=== PATIENT | female | born 1990 | race Caucasian/White ===

== ENCOUNTER 2020-01-04 20:46 | Emergency (ER) | payer SELFPAY ==
[~2020-01-04] VITALS: Ht 172 cm; Wt 120.0 kg
--- NOTE | 2020-01-04 21:04 | ED General ---
General Stated Complaint: NAUSEA,DIARRHEA History of Present Illness Date Seen by Provider: Jan 04, 2020 Time Seen by Provider: 20:50 Initial Comments This patient is a 29-year-old female presents to the emergency department requesting a COVID test. Patient has no symptoms. Patient states that at [facility] and told her that she can get a COVID test before coming back to work. Patient states she does not have a family doctor. Advised patient that COVID testing usually related to symptoms related to COVID-19. And also the res ults are not immediately known. Patient states she does not have a local doctor we have advised we will provide her name of . she called an appointment with. Patient also states that she believes that she is a borderline diabetic and might need to be seen for that also. Patient did discuss options. About want to ask her primary care physician upon establishing care. Patient be discharged home. Patient has no emergent complaints today. Timing/Duration: Other Associated Systoms: No Denies Symptoms, No Chest Pain, No Cough, No Diaphoresis, No Fever/Chills, No Headaches, No Loss of Appetite, No Malaise, No Nausea/Vomiting, No Rash, No Seizure, No Shortness of Air, No Syncope, No Weakness, No Other Allergies and Home Medications Patient Home Medication List Home Medication List Reviewed: Yes Review of Systems Review of Systems Constitutional: No no symptoms reported, No see HPI, No chills, No diaphoresis, No dizziness, No fever, No malaise, No weakness, No weight gain, No weight loss, No other EENTM: No see HPI, No no symptoms reported, No ear discharge, No hearing loss, No ear pain, No blurred vision, No double vision, No eye pain, No tearing, No vision loss, No dental problems, No hoarseness, No mouth pain, No mouth swelling, No epistaxis, No nose congestion, No nose pain, No throat pain, No throat swelling, No other Respiratory: No no symptoms reported, No see HPI, No cough, No dyspnea on exertion, No hemoptysis, No orthopnea, No phlegm, No short of breath, No stridor, No wheezing, No other Cardiovascular: No no symptoms reported, No see HPI, No chest pain, No edema, No Hx of Intervention, No palpitations, No syncope, No vascular heart diseas, No other Gastrointestinal: No RUQ, No LUQ, No RLQ, No LLQ, No no symptoms reported, No see HPI, No abdominal pain, No constipation, No diarrhea, No dysphagia, No hematemesis, No heartburn, No jaundice, No loss of appetite, No melena, No nausea, No vomiting, No other Genitourinary: No no symptoms reported, No see HPI, No decreased output, No discharge, No dysuria, No frequency, No hematuria, No hesitancy, No incontinence, No nocturia, No pain, No other Musculoskeletal: No no symptoms reported, No see HPI, No back pain, No gout, No joint pain, No joint swelling, No muscle pain, No muscle stiffness, No muscle cramps, No muscle twitching, No muscle weakness, No neck pain, No other Skin: No no symptoms reported, No see HPI, No change in color, No change in hair/nails, No dryness, No hx of skin cancer, No lesions, No lumps, No pruritus, No rash, No other All Other Systems Reviewed Negative Unless Noted: Yes Past Rxztezu-Bomgsq-Frfsdx Hx Patient Social History Recent Foreign Travel: No Contact w/Someone Who Travel: No Physical Exam Vital Signs Capillary Refill : Height, Weight, BMI Height: '" Weight: lbs. oz. kg; BMI Method: General Appearance: No Apparent Distress, WD/WN Neck: Full Range of Motion, Normal Inspection, Non Tender, Supple Respiratory: Chest Non Tender, Lungs Clear, Normal Breath Sounds, No Accessory Muscle Use, No Respiratory Distress Cardiovascular: Regular Rate, Rhythm, No Edema, No Gallop, No JVD, No Murmur, Normal Peripheral Pulses Back: Normal Inspection, No CVA Tenderness, No Vertebral Tenderness Neurologic/Psychiatric: Alert, Oriented x3, No Motor/Sensory Deficits, Normal Mood/Affect Progress/Results/Core Measures Suspected Sepsis SIRS Temperature: Pulse: Respiratory Rate: Blood Pressure / Mean: Results/Orders Vital Signs/I&O Capillary Refill : Progress Note : Time: 21:02 Progress Note Patient offered full medical screening exam however patient does not have any acute emergent complaints today. Patient has no symptoms of COVID or any upper respiratory type symptoms at this time. Patient was instructed in directed to primary care to establish care patient states understanding patient is discharged Departure Impression Primary Impression: Encounter for medical screening examination Disposition: HOME, SELF-CARE Condition: Stable Departure-Patient Inst. Referrals: ABE CRANE MD Patient Instructions: Your Normal Heart Add. Discharge Instructions: Follow-up with Dr. Crane and establish primary care. For your primary care needs. VAISHNAVI JOHNSON MD Jan 04, 2020 21:04
[2020-01-04 21:07] VITALS: BP 190/104
== END 2020-01-04 21:11 | disposition home or self-care (01) ==
LOC: ER FS 20:49
DX: Z03.818 Encounter for observation for suspected exposure to other biological agents ruled out (principal)
CPT/HCPCS: 99282

== ENCOUNTER 2022-01-28 17:59 | Emergency (ER) | payer SELFPAY ==
--- NOTE | 2022-01-28 19:30 | ED General ---
General Chief Complaint: General Problems/Pain Stated Complaint: HEAT EXHAUSTION Nursing Triage Note: Patient has presented to ER with several complaints - she states that for the last few days she feels shakey, cough, congestion, has a sore throat, she has vomited, and she has been sweating. History of Present Illness Date Seen by Provider: Jan 28, 2022 Time Seen by Provider: 19:06 Initial Comments 31-year-old female is here with complaints of feeling tired and lethargic and fe els overheated, with c/o dysuria. Patient has been out of electricity and has been in her home smoking marijuana and doing meth, which was found out after deeper questioning. Denies chest pain, shortness of breath, abdominal pain, nausea and vomiting, diarrhea. No known sick contacts. Allergies and Home Medications Allergies Coded Allergies: No Known Drug Allergies (Unverified , 01/04/20) Patient Home Medication List Home Medication List Reviewed: Yes Review of Systems Review of Systems Constitutional: malaise EENTM: no symptoms reported Respiratory: no symptoms reported Cardiovascular: no symptoms reported Gastrointestinal: no symptoms reported Genitourinary: dysuria, hematuria Musculoskeletal: no symptoms reported Skin: no symptoms reported Psychiatric/Neurological: No Symptoms Reported Hematologic/Lymphatic: No Symptoms Reported Immunological/Allergic: no symptoms reported Past Wjxmzxg-Hzhfja-Ryoxsz Hx Patient Social History Tobacco Use?: No Substance use?: Yes Substance type: Marijuana Substance frequency: Once in a while Alcohol Use?: No Pt feels they are or have been: Unable to obtain Past Medical History Surgeries: No Respiratory: No Cardiac: No Neurological: No Genitourinary: No Gastrointestinal: No Musculoskeletal: No Endocrine: No HEENT: No Cancer: No Psychosocial: No Integumentary: No Blood Disorders: No Physical Exam Vital Signs Capillary Refill : Height, Weight, BMI Height: '" Weight: lbs. oz. kg; 40.00 BMI Method: General Appearance: Other (tired and feels lethargic) HEENT: PERRL/EOMI Neck: Full Range of Motion, Normal Inspection, Non Tender, Supple Respiratory: Chest Non Tender, Lungs Clear, Normal Breath Sounds, No Accessory Muscle Use Cardiovascular: Regular Rate, Rhythm Gastrointestinal: Normal Bowel Sounds, Non Tender, Soft Back: Normal Inspection, No CVA Tenderness, No Vertebral Tenderness Extremity: Normal Range of Motion Neurologic/Psychiatric: Alert, Oriented x3, No Motor/Sensory Deficits, Normal Mood/Affect Skin: Normal Color, Warm/Dry Focused Exam Lactate Level 01/28/22 20:07: Lactic Acid Level 1.56 Lactic Acid Level Laboratory Tests Test 01/28/22 20:07 Lactic Acid Level 1.56 MMOL/L (0.50-2.00) Progress/Results/Core Measures Suspected Sepsis SIRS Temperature: Pulse: Respiratory Rate: Laboratory Tests 01/28/22 20:07: White Blood Count 12.1H Blood Pressure / Mean: 01/28/22 20:07: Lactic Acid Level 1.56 Laboratory Tests 01/28/22 20:07: Creatinine 0.77, Platelet Count 270, Total Bilirubin 0.7 Results/Orders Lab Results Laboratory Tests Test 01/28/22 20:07 01/28/22 20:30 Range/Units White Blood Count 12.1 H 4.3-11.0 10^3/uL Red Blood Count 4.87 3.80-5.11 10^6/uL Hemoglobin 14.6 11.5-16.0 g/dL Hematocrit 43 35-52 % Mean Corpuscular Volume 88 80-99 fL Mean Corpuscular Hemoglobin 30 25-34 pg Mean Corpuscular Hemoglobin Concent 34 32-36 g/dL Red Cell Distribution Width 13.1 10.0-14.5 % Platelet Count 270 130-400 10^3/uL Mean Platelet Volume 10.7 9.0-12.2 fL Immature Granulocyte % (Auto) 0 % Neutrophils (%) (Auto) 58 42-75 % Lymphocytes (%) (Auto) 33 12-44 % Monocytes (%) (Auto) 4 0-12 % Eosinophils (%) (Auto) 3 0-10 % Basophils (%) (Auto) 1 0-10 % Neutrophils # (Auto) 7.1 1.8-7.8 10^3/uL Lymphocytes # (Auto) 4.0 1.0-4.0 10^3/uL Monocytes # (Auto) 0.5 0.0-1.0 10^3/uL Eosinophils # (Auto) 0.4 H 0.0-0.3 10^3/uL Basophils # (Auto) 0.1 0.0-0.1 10^3/uL Immature Granulocyte # (Auto) 0.0 0.0-0.1 10^3/uL Sodium Level 139 135-145 MMOL/L Potassium Level 3.4 L 3.6-5.0 MMOL/L Chloride Level 104 98-107 MMOL/L Carbon Dioxide Level 24 21-32 MMOL/L Anion Gap 11 5-14 MMOL/L Blood Urea Nitrogen 8 7-18 MG/DL Creatinine 0.77 0.60-1.30 MG/DL Estimat Glomerular Filtration Rate 105 BUN/Creatinine Ratio 10 Glucose Level 112 H 70-105 MG/DL Lactic Acid Level 1.56 0.50-2.00 MMOL/L Calcium Level 9.3 8.5-10.1 MG/DL Corrected Calcium 9.1 8.5-10.1 MG/DL Magnesium Level 1.8 1.6-2.4 MG/DL Total Bilirubin 0.7 0.1-1.0 MG/DL Aspartate Amino Transf (AST/SGOT) 28 5-34 U/L Alanine Aminotransferase (ALT/SGPT) 43 0-55 U/L Alkaline Phosphatase 52 40-136 U/L Total Protein 7.4 6.4-8.2 GM/DL Albumin 4.2 3.2-4.5 GM/DL Serum Alcohol < 10 <10 MG/DL Urine Color DARK YELLOW Urine Clarity CLOUDY Urine pH 6.0 5-9 Urine Specific [place] >=1.030 1.016-1.022 Urine Protein NEGATIVE NEGATIVE Urine Glucose (UA) NEGATIVE NEGATIVE Urine Ketones NEGATIVE NEGATIVE Urine Nitrite POSITIVE H NEGATIVE Urine Bilirubin 1+ H NEGATIVE Urine Urobilinogen 1.0 < = 1.0 MG/DL Urine Leukocyte Esterase NEGATIVE NEGATIVE Urine RBC (Auto) 2+ H NEGATIVE Urine RBC 2-5 H /HPF Urine WBC 5-10 H /HPF Urine Squamous Epithelial Cells 10-25 H /HPF Urine Crystals NONE /LPF Urine Bacteria LARGE H /HPF Urine Casts NONE /LPF Urine Mucus MODERATE H /LPF Urine Culture Indicated YES Serum Test, Qualitative NEGATIVE NEGATIVE Urine Opiates Screen NEGATIVE NEGATIVE Urine Oxycodone Screen NEGATIVE NEGATIVE Urine Methadone Screen NEGATIVE NEGATIVE Urine Propoxyphene Screen NEGATIVE NEGATIVE Urine Barbiturates Screen NEGATIVE NEGATIVE Ur Tricyclic Antidepressants Screen NEGATIVE NEGATIVE Urine Phencyclidine Screen NEGATIVE NEGATIVE Urine Amphetamines Screen POSITIVE H NEGATIVE Urine Methamphetamines Screen POSITIVE H NEGATIVE Urine Benzodiazepines Screen POSITIVE H NEGATIVE Urine Cocaine Screen NEGATIVE NEGATIVE Urine Cannabinoids Screen POSITIVE H NEGATIVE My Orders Orders - SHERRILL BEEBE MD Alcohol (01/28/22 19:50) Cbc With Automated Diff (01/28/22 19:50) Comprehensive Metabolic Panel (01/28/22 19:50) Drug Screen Stat (Urine) (01/28/22 19:50) Hcg,Qualitative Serum (01/28/22 19:50) Lactic Acid Analyzer (01/28/22 19:50) Magnesium (01/28/22 19:50) Ua Culture If Indicated (01/28/22 19:50) Ed Iv/Invasive Line Start (01/28/22 19:50) Ns Iv 1000 Ml (Sodium Chloride 0.9%) (01/28/22 20:00) Urine Culture (01/28/22 20:30) Nitrofurantoin Capsule,Macro (Macrobid C (01/28/22 21:15) Vital Signs/I&O Capillary Refill : Progress Note : Progress Note 1. DEHYDRATION: ACUTE CYSTITIS WITH HEMATURIA & METHAMPHETAMINE ABUSE / MARIJUANA ABUSE: - UA is positive for nitrates, RBC, WBC, bacteria -Drug screen is positive for methamphetamine and marijuana - Labs otherwise unremarkable -Patient does not have electricity at home and has been sitting in the heat doing meth and smoking marijuana and not drinking of water. Patient will be calling her niece to go stay with her tonight so that she has electricity. -Advised to stop doing drugs and to keep hydrated - Nitrofurantoin 100mg bid for 7 days : prescription -Follow-up with PCP within the next 3 to 5 days -The patient was seen in the ED, and treated appropriately to presentation at a specific point in time. Patient is informed that there is a possibility that disease and illness can evolve and change in acuity rapidly or slowly after patient is discharged from the ER. Precautionary advice given to the patient for immediate return to ER if symptoms worsen or do not resolve, and to seek emergency care sooner rather than later. Pt also advised on the importance of PCP follow up and compliance with management and follow up plan with PCP and/or specialist, as this is part of the management plan. Pt verbally expressed understanding. Departure Impression Primary Impression: Dehydration Additional Impressions: Acute cystitis with hematuria Methamphetamine abuse Marijuana abuse Disposition: HOME, SELF-CARE Condition: Improved Departure-Patient Inst. Referrals: NO,LOCAL PHYSICIAN (PCP/Family) Primary Care Physician Patient Instructions: Urinary Tract Infection, Adult (DC) Add. Discharge Instructions: -Patient does not have electricity at home and has been sitting in the heat doing meth and smoking marijuana and not drinking of water. Patient will be calling her niece to go stay with her tonight so that she has electricity. -Advised to stop doing drugs and to keep hydrated - Nitrofurantoin 100mg bid for 7 days : prescription -Follow-up with PCP within the next 3 to 5 days All discharge instructions reviewed with patient and/or family. Voiced understanding. Scripts Nitrofurantoin Macrocrystal (Nitrofurantoin) 100 Mg Capsule 100 MG PO BID for 7 Days, #14 CAP Prov: SHERRILL BEEBE MD 01/28/22 SHERRILL BEEBE MD Jan 28, 2022 19:30
[2022-01-28] MEDS ORDERED: NS IV 1000 ML 1,000 ML IV SCH (20:00)
[2022-01-28 20:37] LABS: CLARITY,URINE CLOUDY; GLUCOSE, URINE (UA) NEGATIVE (NEGATIVE); KETONES,URINE NEGATIVE (NEGATIVE); LEUKOCYTE ESTERASE ,URINE NEGATIVE (NEGATIVE); NITRITE,URINE POSITIVE (NEGATIVE); PROTEIN,URINE NEGATIVE (NEGATIVE)
[2022-01-28 20:39] LABS: BASOPHILS # (AUTO) 0.1 10^3/uL (0.0-0.1); BASOPHILS % (AUTO) 1 % (0-10); EOSINOPHILS # (AUTO) 0.4 10^3/uL (0.0-0.3); EOSINOPHILS % (AUTO) 3 % (0-10); HEMATOCRIT 43 % (35-52); HEMOGLOBIN 14.6 g/dL (11.5-16.0); LYMPHOCYTES % (AUTO) 33 % (12-44); MEAN CORPUSCULAR HEMOGLOBIN 30 pg (25-34); MEAN CORPUSCULAR HGB CONC 34 g/dL (32-36); MEAN CORPUSCULAR VOLUME 88 fL (80-99); MEAN PLATELET VOLUME 10.7 fL (9.0-12.2); MONOCYTES # (AUTO) 0.5 10^3/uL (0.0-1.0); MONOCYTES % (AUTO) 4 % (0-12); NEUTROPHILS # (AUTO) 7.1 10^3/uL (1.8-7.8); NEUTROPHILS % (AUTO) 58 % (42-75); PLATELET COUNT 270 10^3/uL (130-400); WHITE BLOOD COUNT 12.1 10^3/uL (4.3-11.0)
[2022-01-28 21:00] LABS: BACTERIA,URINE LARGE /HPF; BILIRUBIN,URINE 1+ (NEGATIVE); COLOR,URINE DARK YELLOW
[2022-01-28 21:01] LABS: AMPHETAMINE SCREEN, URINE POSITIVE (NEGATIVE); BARBITURATE SCREEN URINE NEGATIVE (NEGATIVE); BENZODIAZEPINES SCREEN URINE POSITIVE (NEGATIVE); CANNABINOID SCREEN, URINE POSITIVE (NEGATIVE); COCAINE SCREEN URINE NEGATIVE (NEGATIVE); METHADONE STAT NEGATIVE (NEGATIVE); OPIATE SCREEN URINE NEGATIVE (NEGATIVE); OXYCODONE STAT NEGATIVE (NEGATIVE); PROPOXYPHENE STAT NEGATIVE (NEGATIVE); TRICYCLIC ANTIDEPRESSANTS SCRE NEGATIVE (NEGATIVE)
[2022-01-28 21:03] LABS: CARBON DIOXIDE 24 MMOL/L (21-32); CHLORIDE 104 MMOL/L (98-107); POTASSIUM 3.4 MMOL/L (3.6-5.0); SODIUM 139 MMOL/L (135-145)
[2022-01-28 21:04] LABS: ALANINE AMINOTRANSFERASE 43 U/L (0-55); ALBUMIN 4.2 GM/DL (3.2-4.5); ALKALINE PHOSPHATASE 52 U/L (40-136); BILIRUBIN,TOTAL 0.7 MG/DL (0.1-1.0); BUN/CREATININE RATIO 10; CALCIUM 9.3 MG/DL (8.5-10.1); CREATININE SERUM 0.77 MG/DL (0.60-1.30); GFR ESTIMATED 105; GLUCOSE 112 MG/DL (70-105); MAGNESIUM 1.8 MG/DL (1.6-2.4); TOTAL PROTEIN 7.4 GM/DL (6.4-8.2)
[2022-01-28] MEDS ORDERED: NITROFURANTOIN 100 MG (MACROBID) CAPSULE PO ONE (21:15)
[2022-01-28] MEDS ORDERED: NITR100C PO (21:18)
[2022-01-28 21:21] VITALS: BP 130/95
== END 2022-01-28 21:24 | disposition home or self-care (01) ==
LOC: EDUNIT# 17:59 → ER FS 18:00
DX: N30.01 Acute cystitis with hematuria (principal); E86.0 Dehydration; F12.10 Cannabis abuse, uncomplicated; F15.10 Other stimulant abuse, uncomplicated
CPT/HCPCS: 36415; 80053; 80306; 81000; 83605; 83735; 84703; 85025; 87088; 99284; G0480; 80320; 87077

== ENCOUNTER 2022-03-07 16:35 | Emergency (ER) | payer SELFPAY ==
[~2022-03-07] VITALS: Ht 172.7 cm; Wt 36.8 kg
[~2022-03-07 16:35] MED LIST: NITR100C PO
[2022-03-07 16:51] VITALS: BP 160/100
--- NOTE | 2022-03-07 16:51 | ED Upper Extremity ---
General Chief Complaint: Upper Extremity Stated Complaint: FALL, L ARM PAIN History of Present Illness Date Seen by Provider: Mar 07, 2022 Time Seen by Provider: 16:50 Initial Comments 31-year-old female presents with left shoulder, elbow and wrist pain. Patient reports that 2 days ago she tripped on a dog toy fell and hit concrete step. Patient has a sling on this left over from when her "niece broke her arm a couple years ago" patient has painful range of motion in all 3 joints. She does have full range of motion. Patient has a elbow wrap on her left elbow. Patient denies any other injury from when she fell. Allergies and Home Medications Allergies Coded Allergies: No Known Drug Allergies (Unverified , 01/04/20) Patient Home Medication List Home Medication List Reviewed: Yes Nitrofurantoin Macrocrystal (Nitrofurantoin) 100 Mg Capsule, 100 MG PO BID Prescribed by: SHERRILL BEEBE MD on 01/28/222117 Review of Systems Constitutional: no symptoms reported EENTM: no symptoms reported Respiratory: no symptoms reported Cardiovascular: no symptoms reported Genitourinary: no symptoms reported Musculoskeletal: see HPI Skin: no symptoms reported Psychiatric/Neurological: No Symptoms Reported Past Jylxbtp-Jqfqoh-Fkuerb Hx Past Medical History Surgeries: No Respiratory: No Cardiac: No Neurological: No Genitourinary: No Gastrointestinal: No Musculoskeletal: No Endocrine: No HEENT: No Cancer: No Psychosocial: No Integumentary: No Blood Disorders: No Physical Exam Vital Signs Capillary Refill : Height, Weight, BMI Height: '" Weight: lbs. oz. kg; 40.00 BMI Method: General Appearance: WD/WN, no apparent distress, obese HEENT: PERRL/EOMI Cardiovascular: normal peripheral pulses, regular rate, rhythm Respiratory: lungs clear, normal breath sounds Gastrointestinal: non tender, soft Shoulder: No deformity; pain, soft tissue tenderness Elbow/Forearm: Left, deformity, soft tissue tenderness Wrist: Yes normal ROM; No deformity; Yes soft tissue tenderness Hand: normal inspection Neurologic/Psychiatric: alert, normal mood/affect, oriented x 3 Skin: normal color, warm/dry Progress/Results/Core Measures Results/Orders My Orders Orders - STEPHANIE LUDWIG DO Elbow 3 View Left (03/07/22 17:00) Shoulder 2 View Left (03/07/22 17:00) Wrist 3 View Left (03/07/22 17:00) Ortho Glass (03/07/22 17:37) Progress Progress Note : Progress Note Patient with fracture of the articular surface of the capitellum on the left el bow. Discussed with Dr. Hanson. We will place in a splint and sling. Have patient follow-up with Jeffrey Taylor for further outpatient recommendations Diagnostic Imaging Diagonstic Imaging: Xray Plain Films/CT/US/NM/MRI: elbow Comments Date of Exam:03/07/22 ELBOW 3 VIEW LEFT HISTORY: Fall, left elbow pain. TECHNIQUE: Three views of the left elbow. COMPARISON: None. FINDINGS: There is an anteriorly displaced and superiorly angulated fracture of the articular surface of the capitellum of the distal left humerus. There is a moderate left elbow joint effusion. The radial head is in expected position relative to the humerus otherwise. No other fractures are seen. There is surrounding soft tissue swelling. IMPRESSION: 1. Displaced fracture of the left humerus capitellum with a left elbow joint effusion. Reviewed: Reviewed by Me, Reviewed/Discussed Diagonstic Imaging: Xray Comments Date of Exam:03/07/22 SHOULDER 2 VIEW LEFT INDICATION: Fall last night with left arm pain TECHNIQUE: 2 views of the left shoulder CORRELATION STUDY: None FINDINGS: The glenohumeral and acromioclavicular alignment are maintained and unremarkable. There is no evidence for acute fracture or dislocation. The visualized soft tissues are unremarkable. IMPRESSION: 1. Negative for acute bony abnormality of the left shoulder. Reviewed: Reviewed by Me, Reviewed/Discussed Diagonstic Imaging: Xray Comments Date of Exam:03/07/22 WRIST 3 VIEW LEFT INDICATION: Fall last night, pain TECHNIQUE: 3 views of the left wrist CORRELATION STUDY: None FINDINGS: The osseous structures of the wrist have an unremarkable appearance. Alignment is anatomic. There is no acute bony abnormality. The visualized soft tissues appearing unremarkable. IMPRESSION: 1. Negative examination of the left wrist. Reviewed: Reviewed by Me, Reviewed/Discussed Departure Impression Primary Impression: Closed fracture of capitellum of left humerus Qualified Codes: S42.452A - Displaced fracture of lateral condyle of left humerus, initial encounter for closed fracture Disposition: 01 HOME, SELF-CARE Condition: Stable Departure-Patient Inst. Referrals: BELLE TAYLOR NO,LOCAL PHYSICIAN (PCP) Primary Care Physician Patient Instructions: Elbow Fracture, Adult ED, Splint Care ED Add. Discharge Instructions: Please call Jeffrey Taylor's office first thing in the morning to arrange for an outpatient follow-up Keep left arm elevated when not ambulating All discharge instructions reviewed with patient and/or family. Voiced understanding. Scripts Hydrocodone/Acetaminophen (Hydrocodone-Acetamin 5-325 mg) 5 Mg-325 Mg Tablet 1 TAB PO Q8H PRN for PAIN-MODERATE (5-7), #10 TAB Prov: STEPHANIE LUDWIG DO 03/07/22 STEPHANIE LUDWIG DO Mar 07, 2022 16:51
--- NOTE | 2022-03-07 17:27 | Diagnostic Imaging Report ---
INDICATION: Fall last night with left arm pain TECHNIQUE: 2 views of the left shoulder CORRELATION STUDY: None FINDINGS: The glenohumeral and acromioclavicular alignment are maintained and unremarkable. There is no evidence for acute fracture or dislocation. The visualized soft tissues are unremarkable. IMPRESSION: 1. Negative for acute bony abnormality of the left shoulder. Dictated by: Dictated on workstation # [id number]
--- NOTE | 2022-03-07 17:28 | Diagnostic Imaging Report ---
INDICATION: Fall last night, pain TECHNIQUE: 3 views of the left wrist CORRELATION STUDY: None FINDINGS: The osseous structures of the wrist have an unremarkable appearance. Alignment is anatomic. There is no acute bony abnormality. The visualized soft tissues appearing unremarkable. IMPRESSION: 1. Negative examination of the left wrist. Dictated by: Dictated on workstation # [id number]
--- NOTE | 2022-03-07 17:30 | Diagnostic Imaging Report ---
HISTORY: Fall, left elbow pain. TECHNIQUE: Three views of the left elbow. COMPARISON: None. FINDINGS: There is an anteriorly displaced and superiorly angulated fracture of the articular surface of the capitellum of the distal left humerus. There is a moderate left elbow joint effusion. The radial head is in expected position relative to the humerus otherwise. No other fractures are seen. There is surrounding soft tissue swelling. IMPRESSION: 1. Displaced fracture of the left humerus capitellum with a left elbow joint effusion. Dictated by: Dictated on workstation # [id number]
[2022-03-07] MEDS ORDERED: ACHD5005 PO (18:21)
== END 2022-03-07 18:25 | disposition home or self-care (01) ==
LOC: EDUNIT# 16:35 → ER FS 16:36
DX: S42.452A Displaced fracture of lateral condyle of left humerus, initial encounter for closed fracture (principal); W01.198A Fall on same level from slipping, tripping and stumbling with subsequent striking against other object, initial encounter
CPT/HCPCS: 29105; 73030; 73080; 73110

== ENCOUNTER 2023-01-29 14:55 | Emergency (ER) | payer OTHER ==
[~2023-01-29 14:55] MED LIST changes: +ACHD5005 PO
[2023-01-29] MEDS ORDERED: LORazepam 0.5 MG (ATIVAN) TABLET PO STA (15:16)
--- NOTE | 2023-01-29 15:21 | ED General ---
General Chief Complaint: General Problems/Pain Source of Information: Patient, EMS, Old Records Exam Limitations: Other (appears to be under the influence of something) History of Present Illness Date Seen by Provider: Jan 29, 2023 Time Seen by Provider: 14:55 Initial Comments 32-year-old female presenting by EMS from [facility]. Patient stat es that she was at [facility] to be tested for parasites. When they tried to draw blood she felt like the parasites in her arm were twisting with the blood draw. She started having a panic attack and was screaming and reportedly going in and out of consciousness. On arrival to the ED she appears to be under the influence of some substance. She admits to using marijuana but initially denies methamphetamines. From review of her prior ED visits in her EMR she does have a history of methamphetamine and marijuana abuse. When nursing staff try to get blood and an IV here in the emergency department she was screaming at the top of her lungs that the parasite was twisting in her arm and she felt things were worse with the nurse trying to draw blood and start the IV. She was hyperventilating and breathing hard. Her heart was racing with her agitation and hyperventilating. She also used her albuterol inhaler on arrival to the ED. Associated Systoms: No Chest Pain, No Cough, No Diaphoresis, No Fever/Chills; Headaches; No Nausea/Vomiting; Shortness of Air; No Syncope Allergies and Home Medications Allergies Coded Allergies: No Known Drug Allergies (Unverified , 01/04/20) Patient Home Medication List Home Medication List Reviewed: Yes Nitrofurantoin Monohyd/M-Cryst (Macrobid 100 mg Capsule) 100 Mg Capsule, 1 TAB PO BID Prescribed by: TOMY COFFEY on 01/29/23 165 Discontinued Medications Hydrocodone/Acetaminophen (Hydrocodone-Acetamin 5-325 mg) 5 Mg-325 Mg Tablet, 1 TAB PO Q8H PRN for PAIN-MODERATE (5-7) Prescribed by: STEPHANIE LUDWIG on 03/07/22 182 Nitrofurantoin Macrocrystal (Nitrofurantoin) 100 Mg Capsule, 100 MG PO BID Prescribed by: SHERRILL BEEBE MD on 01/28/222117 Review of Systems Review of Systems Constitutional: No chills, No fever EENTM: no symptoms reported Respiratory: see HPI Cardiovascular: No chest pain Gastrointestinal: no symptoms reported Genitourinary: no symptoms reported Musculoskeletal: no symptoms reported Skin: no symptoms reported Psychiatric/Neurological: Anxiety, Emotional Problems Past Ryvwzbv-Wtuylj-Ibukku Hx Patient Social History Tobacco Use?: No Use of E-Cig and/or Vaping dev: No Substance use?: Yes Substance type: Methamphetamine, Marijuana Additional substance use comme: Hx of meth use. Denies use today Substance frequency: Couple times a week Alcohol Use?: No Pt feels they are or have been: No Immunizations Up To Date First/Initial COVID19 Vaccinat: Denies Past Medical History Surgery/Hospitalization HX: Bipolar; Asthma; Anxiety; HTN; Headaches Surgeries: No Respiratory: No Cardiac: No Neurological: No Genitourinary: No Gastrointestinal: No Musculoskeletal: No Endocrine: No HEENT: No Cancer: No Psychosocial: No Integumentary: No Blood Disorders: No Physical Exam Vital Signs Vital Signs - First Documented 01/29/23 14:55 Temp 36.7 Pulse 141 Resp 16 B/P (MAP) 121/85 (97) Pulse Ox 98 O2 Delivery Room Air Capillary Refill : Height, Weight, BMI Height: '" Weight: lbs. oz. kg; 12.00 BMI Method: General Appearance: Obese, Other (Poor personal hygiene and disheveled appearance. She has moderate amount of facial hair.) HEENT: PERRL/EOMI; No Moist Mucous Membranes (slightly dry mucous membranes and foaming saliva at the corners of her mouth) Neck: Full Range of Motion, Normal Inspection, Supple Respiratory: Chest Non Tender, Lungs Clear, Normal Breath Sounds, No Accessory Muscle Use, No Respiratory Distress Cardiovascular: Normal Peripheral Pulses, Tachycardia Gastrointestinal: Normal Bowel Sounds, No Pulsatile Mass, Non Tender, Soft Rectal: Deferred Extremity: Normal Capillary Refill, No Pedal Edema Neurologic/Psychiatric: Alert, Oriented x3; No Normal Mood/Affect (anxious and having panic attack with attempts to draw blood); first assistant manager II-XII Norm as Tested Skin: Warm/Dry Progress/Results/Core Measures Suspected Sepsis SIRS Temperature: Pulse: Respiratory Rate: Laboratory Tests 01/29/23 15:00: White Blood Count 14.2H Blood Pressure / Mean: Laboratory Tests 01/29/23 15:00: Creatinine 1.15, Platelet Count 331, Total Bilirubin 0.5 Results/Orders Lab Results Laboratory Tests Test 01/29/23 15:00 01/29/23 16:03 Range/Units White Blood Count 14.2 H 4.3-11.0 10^3/uL Red Blood Count 5.39 H 3.80-5.11 10^6/uL Hemoglobin 16.3 H 11.5-16.0 g/dL Hematocrit 48 35-52 % Mean Corpuscular Volume 88 80-99 fL Mean Corpuscular Hemoglobin 30 25-34 pg Mean Corpuscular Hemoglobin Concent 34 32-36 g/dL Red Cell Distribution Width 13.4 10.0-14.5 % Platelet Count 331 130-400 10^3/uL Mean Platelet Volume 10.5 9.0-12.2 fL Immature Granulocyte % (Auto) 0 % Neutrophils (%) (Auto) 49 42-75 % Lymphocytes (%) (Auto) 44 12-44 % Monocytes (%) (Auto) 5 0-12 % Eosinophils (%) (Auto) 2 0-10 % Basophils (%) (Auto) 1 0-10 % Neutrophils # (Auto) 7.0 1.8-7.8 10^3/uL Lymphocytes # (Auto) 6.2 H 1.0-4.0 10^3/uL Monocytes # (Auto) 0.7 0.0-1.0 10^3/uL Eosinophils # (Auto) 0.2 0.0-0.3 10^3/uL Basophils # (Auto) 0.1 0.0-0.1 10^3/uL Immature Granulocyte # (Auto) 0.0 0.0-0.1 10^3/uL Neutrophils % (Manual) 46 % Lymphocytes % (Manual) 45 % Monocytes % (Manual) 7 % Eosinophils % (Manual) 2 % Blood Morphology Comment NORMAL Sodium Level 144 135-145 MMOL/L Potassium Level 3.6 3.6-5.0 MMOL/L Chloride Level 107 98-107 MMOL/L Carbon Dioxide Level 17 L 21-32 MMOL/L Anion Gap 20 H 5-14 MMOL/L Blood Urea Nitrogen 13 7-18 MG/DL Creatinine 1.15 0.60-1.30 MG/DL Estimat Glomerular Filtration Rate 65 BUN/Creatinine Ratio 11 Glucose Level 131 H 70-105 MG/DL Calcium Level 10.3 H 8.5-10.1 MG/DL Corrected Calcium 8.5-10.1 MG/DL Total Bilirubin 0.5 0.1-1.0 MG/DL Aspartate Amino Transf (AST/SGOT) 26 5-34 U/L Alanine Aminotransferase (ALT/SGPT) 37 0-55 U/L Alkaline Phosphatase 68 40-136 U/L Total Protein 8.2 6.4-8.2 GM/DL Albumin 4.7 H 3.2-4.5 GM/DL Salicylates Level < 5.0 L 5.0-20.0 MG/DL Acetaminophen Level < 10 L 10-30 UG/ML Serum Alcohol < 10 <10 MG/DL Urine Color YELLOW Urine Clarity CLOUDY Urine pH 6.0 5-9 Urine Specific [place] >=1.030 1.016-1.022 Urine Protein TRACE H NEGATIVE Urine Glucose (UA) NEGATIVE NEGATIVE Urine Ketones NEGATIVE NEGATIVE Urine Nitrite POSITIVE H NEGATIVE Urine Bilirubin NEGATIVE NEGATIVE Urine Urobilinogen 2.0 < = 1.0 MG/DL Urine Leukocyte Esterase 2+ H NEGATIVE Urine RBC (Auto) 3+ H NEGATIVE Urine RBC 10-25 H /HPF Urine WBC 50-100 H /HPF Urine Squamous Epithelial Cells 10-25 H /HPF Urine Crystals PRESENT H /LPF Urine Uric Acid Crystals FEW H /LPF Urine Bacteria LARGE H /HPF Urine Casts PRESENT /LPF Urine Hyaline Casts 10-25 H /LPF Urine Mucus SMALL H /LPF Urine Culture Indicated YES Urine Opiates Screen NEGATIVE NEGATIVE Urine Oxycodone Screen NEGATIVE NEGATIVE Urine Methadone Screen NEGATIVE NEGATIVE Urine Propoxyphene Screen NEGATIVE NEGATIVE Urine Barbiturates Screen NEGATIVE NEGATIVE Ur Tricyclic Antidepressants Screen NEGATIVE NEGATIVE Urine Phencyclidine Screen NEGATIVE NEGATIVE Urine Amphetamines Screen POSITIVE H NEGATIVE Urine Methamphetamines Screen POSITIVE H NEGATIVE Urine Benzodiazepines Screen NEGATIVE NEGATIVE Urine Cocaine Screen NEGATIVE NEGATIVE Urine Cannabinoids Screen POSITIVE H NEGATIVE My Orders Orders - TOMY COFFEY MD Ua Culture If Indicated (01/29/23 15:16) Cbc With Automated Diff (01/29/23 15:16) Comprehensive Metabolic Panel (01/29/23 15:16) Alcohol (01/29/23 15:16) Drug Screen Stat (Urine) (01/29/23 15:16) Acetaminophen (01/29/23 15:16) Salicylate (01/29/23 15:16) Ekg Tracing (01/29/23 15:16) Ed Iv/Invasive Line Start (01/29/23 15:16) Monitor-Rhythm Ecg Trace Only (01/29/23 15:16) Lorazepam Tablet (Ativan Tablet) (01/29/23 15:16) Manual Differential (01/29/23 15:00) Urine Culture (01/29/23 16:03) Vital Signs/I&O 01/29/23 01/29/23 14:55 16:52 Temp 36.7 36.7 Pulse 141 112 Resp 16 16 B/P (MAP) 121/85 (97) 127/78 Pulse Ox 98 98 O2 Delivery Room Air Room Air Capillary Refill : Progress Note #1: Progress Note Potential diagnosis of substance abuse, psychosis, hallucinations, electrolyte imbalance, UTI. Patient was not cooperative with having IV established. Labs were obtained and sent for complete blood count, comprehensive metabolic profile, alcohol level, salicylate level, acetaminophen level. Ordered urinalysis and urine drug scre en. Obtain electrocardiogram with her tachycardia and place on cardiac school bus monitor. Since she will not allow an IV to be established will have her try drinking water to help with her hydration. Order Ativan 0.5 mg po to try and help with her anxiety and possible psychosis induced by methamphetamine abuse. Progress Note #2: Time: 16:08 Progress Note On my personal interpretation and review her labs showed mild elevation of her white blood cell count of 14.2 with a normal differential. This might be more stress related or dehydration and hemoconcentration to cause it. Her hemoglobin was okay at 16.3. Her comprehensive metabolic panel did not show any acute significant electrolyte abnormalities to account for her complaints. Her alcohol and acetaminophen levels were both less than 10 and aspirin less than 5. She has come down some and is she was providing a urine specimen and told the nurses that she had been smoking marijuana with her brother and he told her after they have been smoking pot all day that he had mixed meth in with his marijuana. 1628 urinalysis shows elevated specific gravity to go with dehydration as it is >1.030. Positive nitrites and leukocyte esterase along with bacteria and white blood cells. Last urine culture from january 2022 showed E. coli that was pansensitive to everything except Ampicillin resistance. Will start her on oral antibiotic with prescription for home. Order Macrobid 100 mg po BID x 5 days. Urine drug screen came back showing Amphetamines, Methamphetamines, and Marijuana. Encouraged patient to avoid using methamphetamines or marijuana. Drink more water and stay better hydrated. Finish course of antibiotics to treat for UTI. ECG Initial ECG Impression Date: Jan 29, 2023 Initial ECG Impression Time: 15:05 Initial ECG Rate: 143 Initial ECG Rhythm: S.Tach Initial ECG Comparisson: No Previous ECG Available Comment On my personal interpretation and review her electrocardiogram appears to show sinus tachycardia with a heart rate of 143 bpm. She had no ST elevation. QT interval 360 ms with a QTc interval 443 ms. There is no prior tracing available for comparison. Departure Impression Primary Impression: Substance-induced psychotic disorder with delusions Additional Impressions: Methamphetamine abuse Acute cystitis with hematuria Dehydration Disposition: HOME, SELF-CARE Condition: Stable Departure-Patient Inst. Decision time for Depature: 16:31 Referrals: NO,LOCAL PHYSICIAN (PCP) Primary Care Physician [facility] Patient Instructions: Substance Use Disorder ED, Urinary Tract Infection, Adult ED, Dehydration, Adult ED Add. Discharge Instructions: Avoid using marijuana and methamphetamines. Take the full course of antibiotics for UTI. Stay well hydrated and check back with clinic for continued concerns. All discharge instructions reviewed with patient and/or family. Voiced understanding. Scripts Nitrofurantoin Monohyd/M-Cryst (Macrobid 100 mg Capsule) 100 Mg Capsule 1 TAB PO BID for UTI for 5 Days, #10 CAP 0 Refills Prov: TOMY COFFEY MD 01/29/23 TOMY COFFEY MD Jan 29, 2023 15:20
[2023-01-29 15:22] LABS: BASOPHILS # (AUTO) 0.1 10^3/uL (0.0-0.1); BASOPHILS % (AUTO) 1 % (0-10); EOSINOPHILS # (AUTO) 0.2 10^3/uL (0.0-0.3); EOSINOPHILS % (AUTO) 2 % (0-10); HEMATOCRIT 48 % (35-52); HEMOGLOBIN 16.3 g/dL (11.5-16.0); LYMPHOCYTES # (AUTO) 6.2 10^3/uL (1.0-4.0); LYMPHOCYTES % (AUTO) 44 % (12-44); MEAN CORPUSCULAR HEMOGLOBIN 30 pg (25-34); MEAN CORPUSCULAR HGB CONC 34 g/dL (32-36); MEAN CORPUSCULAR VOLUME 88 fL (80-99); MEAN PLATELET VOLUME 10.5 fL (9.0-12.2); MONOCYTES # (AUTO) 0.7 10^3/uL (0.0-1.0); MONOCYTES % (AUTO) 5 % (0-12); NEUTROPHILS % (AUTO) 49 % (42-75); PLATELET COUNT 331 10^3/uL (130-400); WHITE BLOOD COUNT 14.2 10^3/uL (4.3-11.0)
[2023-01-29 15:34] LABS: EOSINOPHILS % (MANUAL) 2 %; LYMPHOCYTES % (MANUAL) 45 %; MONOCYTES % (MANUAL) 7 %; NEUTROPHILS % (MANUAL) 46 %; RBC MORPH NORMAL
[2023-01-29 15:42] LABS: ALANINE AMINOTRANSFERASE 37 U/L (0-55); ALBUMIN 4.7 GM/DL (3.2-4.5); ALKALINE PHOSPHATASE 68 U/L (40-136); BILIRUBIN,TOTAL 0.5 MG/DL (0.1-1.0); BUN/CREATININE RATIO 11; CALCIUM 10.3 MG/DL (8.5-10.1); CARBON DIOXIDE 17 MMOL/L (21-32); CHLORIDE 107 MMOL/L (98-107); CREATININE SERUM 1.15 MG/DL (0.60-1.30); GFR ESTIMATED 65; GLUCOSE 131 MG/DL (70-105); POTASSIUM 3.6 MMOL/L (3.6-5.0); SODIUM 144 MMOL/L (135-145); TOTAL PROTEIN 8.2 GM/DL (6.4-8.2)
[2023-01-29 15:43] LABS: ACETAMINOPHEN < 10 UG/ML (10-30); SALICYLATE < 5.0 MG/DL (5.0-20.0)
[2023-01-29 16:17] LABS: BILIRUBIN,URINE NEGATIVE (NEGATIVE); CLARITY,URINE CLOUDY; COLOR,URINE YELLOW; GLUCOSE, URINE (UA) NEGATIVE (NEGATIVE); KETONES,URINE NEGATIVE (NEGATIVE); LEUKOCYTE ESTERASE ,URINE 2+ (NEGATIVE); NITRITE,URINE POSITIVE (NEGATIVE); PROTEIN,URINE TRACE (NEGATIVE)
[2023-01-29 16:24] LABS: BACTERIA,URINE LARGE /HPF; URIC ACID CRYSTALS,URINE FEW /LPF; WBC,URINE 50-100 /HPF
[2023-01-29 16:28] LABS: AMPHETAMINE SCREEN, URINE POSITIVE (NEGATIVE); BARBITURATE SCREEN URINE NEGATIVE (NEGATIVE); BENZODIAZEPINES SCREEN URINE NEGATIVE (NEGATIVE); CANNABINOID SCREEN, URINE POSITIVE (NEGATIVE); COCAINE SCREEN URINE NEGATIVE (NEGATIVE); METHADONE STAT NEGATIVE (NEGATIVE); OPIATE SCREEN URINE NEGATIVE (NEGATIVE); OXYCODONE STAT NEGATIVE (NEGATIVE); PROPOXYPHENE STAT NEGATIVE (NEGATIVE); TRICYCLIC ANTIDEPRESSANTS SCRE NEGATIVE (NEGATIVE)
[2023-01-29] MEDS ORDERED: NITR-65 PO ×2 (16:32→16:52)
[2023-01-29 16:52] VITALS: BP 127/78
== END 2023-01-29 16:52 | disposition home or self-care (01) ==
LOC: EDUNIT# 14:55 → ER FS 14:57
DX: F15.150 Other stimulant abuse with stimulant-induced psychotic disorder with delusions (principal); F12.150 Cannabis abuse with psychotic disorder with delusions; N30.01 Acute cystitis with hematuria; R00.0 Tachycardia, unspecified; E66.9 Obesity, unspecified; Z68.1 Body mass index [BMI] 19.9 or less, adult; Z28.310 Unvaccinated for COVID-19
CPT/HCPCS: 36415; 80053; 80306; 80320; 80329; 81000; 85007; 85027; 87088; 93005; 93041

== ENCOUNTER 2023-02-23 23:31 | Emergency (ER) | payer SELFPAY ==
[~2023-02-23] VITALS: Ht 172.7 cm; Wt 100.0 kg
[~2023-02-23 23:31] MED LIST changes: +NITR-65 PO
[2023-02-23] MEDS ORDERED: LORazepam 0.5 MG TABLET PO STA (23:54)
[2023-02-24] MEDS ORDERED: NS IV 1000 ML 1,000 ML IV ONE
--- NOTE | 2023-02-24 00:01 | ED Psychosocial ---
General Stated Complaint: PSYCH Source: patient, EMS, old records Exam Limitations: other (appears under the influence of some substance(s)) History of Present Illness Date Seen by Provider: Feb 23, 2023 Time Seen by Provider: 23:32 Initial Comments 32-year-old female presenting by EMS due to complaints of erratic and psychotic behavior. She has been paranoid and states that she has parasitic snakes that are in her body. She was refusing IV stick with EMS as she states that when she gets stuck for blood that this takes get bigger and twist her arm. They started to attack her and that they are very contagious and stick to everything. She states that she does smoke marijuana. When she was seen previously on January 29 she was finally able to calm down after some Ativan but she did test positive for methamphetamines and marijuana. She later admitted that family member had mixed meth and with the marijuana that they were smoking. She states that she does not leave her house over the last 3 years. She had no specific request for treatment in the ED. She keeps repeating how she has parasitic snakes that get bigger in the dark and can only be seen in the dark. Associated Symptoms: anxiety, impaired concentration Allergies and Home Medications Allergies Coded Allergies: No Known Drug Allergies (Unverified , 01/04/20) Patient Home Medication List Home Medication List Reviewed: Yes Nitrofurantoin Monohyd/M-Cryst (Macrobid 100 mg Capsule) 100 Mg Capsule, 1 TAB PO BID Prescribed by: TOMY COFFEY on 01/29/23 2482 Review of Systems Constitutional: no symptoms reported EENTM: no symptoms reported Respiratory: no symptoms reported Cardiovascular: no symptoms reported Gastrointestinal: no symptoms reported Genitourinary: no symptoms reported Musculoskeletal: no symptoms reported Skin: see HPI Psychiatric/Neurological: Anxiety, Emotional Problems Past Nwngayf-Egixwo-Ecfxil Hx Patient Social History Substance use?: Yes Substance type: Methamphetamine, Marijuana Immunizations Up To Date First/Initial COVID19 Vaccinat: Denies Past Medical History Surgery/Hospitalization HX: Bipolar; Asthma; Anxiety; HTN; Headaches, Marijuana, Methamphetamine abuse Surgeries: No Respiratory: No Cardiac: No Neurological: No Genitourinary: No Gastrointestinal: No Musculoskeletal: No Endocrine: No HEENT: No Cancer: No Psychosocial: No Integumentary: No Blood Disorders: No Physical Exam Vital Signs - First Documented 02/23/23 23:32 Temp 36.7 Pulse 148 Resp 22 B/P (MAP) 129/86 (100) Pulse Ox 100 O2 Delivery Room Air Capillary Refill : Height, Weight, BMI Height: '" Weight: lbs. oz. kg; 12.00 BMI Method: General Appearance: obese, other (poor personal hygiene and disheveled appearance. She has grass and dirt on her from rolling around on the ground. She keeps wanting to have the lights off so that she can show us her parasitic snakes.) HEENT: PERRL/EOMI; No photophobia; other (slightly dry mucous membranes with foaming saliva at corners of her mouth. Moderate amount of facial hair) Respiratory: chest non-tender, lungs clear, normal breath sounds Cardiovascular: normal peripheral pulses, regular rate, rhythm Gastrointestinal: normal bowel sounds, non tender, soft, no pulsatile mass Extremities: normal range of motion, non-tender, normal capillary refill Neurologic/Psychiatric: alert, oriented x 3 Appearance/Memory: disheveled, impaired insight Behavior/Eye Contact: cooperative, avoids eye contact, increased rate of speech Thoughts/Hallucinations: delusions, paranoid, tactile hallucinations, visual hallucinations Skin: warm/dry BARS Assessment: 5-Mild Agitation/Calms Plan/Intervention Administer Lorazepam 1 mg po to try and help with her delusions and paranoia. Will also administer a dose of zyprexa to see if that helps with her delusions and paranoia. Progress/Results/Core Measures Results/Orders My Orders Orders - TOMY COFFEY MD Ua Culture If Indicated (02/23/23 23:54) Cbc With Automated Diff (02/23/23 23:54) Comprehensive Metabolic Panel (02/23/23 23:54) Alcohol (02/23/23 23:54) Drug Screen Stat (Urine) (02/23/23 23:54) Acetaminophen (02/23/23 23:54) Salicylate (02/23/23 23:54) Ed Iv/Invasive Line Start (02/23/23 23:54) Ns Iv 1000 Ml (Sodium Chloride 0.9%) (02/24/23 00:00) Lorazepam Tablet (Ativan Tablet) (02/23/23 23:54) Olanzapine Orally Dissolve Tab (Zyprexa (02/24/23 00:05) Vital Signs/I&O 02/23/23 23:32 Temp 36.7 Pulse 148 Resp 22 B/P (MAP) 129/86 (100) Pulse Ox 100 O2 Delivery Room Air Progress Progress Note #1: Progress Note Potential diagnosis of paranoid behavior due to substances, acute psychosis, drug-induced mood disorder, methamphetamine abuse. Ordered Ativan 1 mg p.o. x1 to try and help with her paranoia and hallucinations. Zyprexa 5 mg oral dissolvable tablet to help with paranoia and acute psychosis. Try to obtain urine to check urine drug screen as the last time she acted like this 3 weeks ago she was positive for methamphetamines and marijuana. Try to get an IV to give a liter of IV fluids and check basic labs and psych labs of complete blood count, comprehensive metabolic profile, alcohol, acetaminophen, salicylate, urinalysis, urine drug screen. Initially patient was refusing IV blood draw or stick with a needle as she states that when she stuck with a needle the "snakes get bigger and start twisting my arm". Evaluated patient with the lights dimmed and still did not appreciate any of the snakes that she states are all over her body and get bigger when the lights are out. Progress Note #2: Progress Note Patient did not provide a urine specimen as she urinated in the toilet rather than going into the hat. She refused blood draw as she stated that sticking her with a needle would make a zombie snakes growing her arm and twisted her arm and fight her. She was given lorazepam 1 mg p.o. as well as olanzapine or Zyprexa 5 mg oral dissolving tablet. She has been more calm after the medications but still refused blood draw and providing a urine specimen. 0100 her arrived and is there is no further medical treatment that I can provide here and patient was refusing other testing or care will discharge to home with her . Counseled to not use drugs or alcohol. Follow-up with the clinic for continued mental health and general health care Departure Impression Primary Impression: Psychosis Qualified Codes: F22 - Delusional disorders Additional Impressions: Hallucinations Substance-induced psychotic disorder with delusions Disposition: 01 HOME, SELF-CARE Condition: Stable Departure-Patient Inst. Decision time for Depature: 01:02 Referrals: DB KATE MD (PCP/Family) Primary Care Physician Patient Instructions: Substance Use Disorder ED, Acute Psychosis (DC) Add. Discharge Instructions: You were given Lorazepam 1 mg and Zyprexa 5 mg here to help calm you down Did not use marijuana or methamphetamines. Avoid drug use in general. Try to stay well-hydrated and drink plenty of fluids. Follow-up with [facility] for continued mental health care and general health care. TOMY COFFEY MD Feb 24, 2023 00:01
[2023-02-24] MEDS ORDERED: OLANZapine 5 MG ODT (ZyPREXA ZYDIS) PO STA (00:05)
[2023-02-24 01:05] VITALS: BP 126/92
== END 2023-02-24 01:05 | disposition home or self-care (01) ==
LOC: EDUNIT# 23:31 → ER FS 23:33
DX: F29 Unspecified psychosis not due to a substance or known physiological condition (principal); F19.959 Other psychoactive substance use, unspecified with psychoactive substance-induced psychotic disorder, unspecified
CPT/HCPCS: 99283